=== PATIENT | female | born 1995 | race Caucasian/White ===

== ENCOUNTER 2022-12-16 10:36 | Emergency (ER) | payer OTHER ==
[2022-12-16 11:02] VITALS: BP 114/76; PULSE 84; RESP 18; TEMP 97.6; BMI 26.3
[2022-12-16] MEDS ORDERED: SODIUM CHLORIDE 1,000 ML IV STA (12:00)
[2022-12-16] MEDS ORDERED: METOCLOPRAMIDE HCL INJECTION 10 MG/2 ML VIAL IVPB ONE (12:00)
[2022-12-16] MEDS ORDERED: KETOROLAC TROMETHAMINE 15 MG/ML VIAL IVPUSH ONE (12:00)
[2022-12-16] MEDS ORDERED: METOCLOPRAMIDE HCL INJECTION 10 MG/2 ML VIAL ONE (12:40)
[2022-12-16] MEDS ORDERED: KETOROLAC TROMETHAMINE 15 MG/ML VIAL ONE (12:40)
[2022-12-16] MEDS ORDERED: CEFTRIAXONE 1 GM/50 ML BAG ONE (13:19)
== END 2022-12-16 14:40 | disposition home or self-care (01) ==
LOC: JERFT 10:36
PROC: 3E033NZ Introduction of Analgesics, Hypnotics, Sedatives into Peripheral Vein, Percutaneous Approach (ICD-10-PCS; principal; 2022-12-16)
PROC: 3E033GC Introduction of Other Therapeutic Substance into Peripheral Vein, Percutaneous Approach (ICD-10-PCS; 2022-12-16)
PROC: 3E0337Z Introduction of Electrolytic and Water Balance Substance into Peripheral Vein, Percutaneous Approach (ICD-10-PCS; 2022-12-16)
DX: H57.12 Ocular pain, left eye (principal); G44.019 Episodic cluster headache, not intractable
CPT/HCPCS: 99284-25